=== PATIENT | male | born 1970 | race Caucasian/White ===

== ENCOUNTER 2016-04-24 20:16 | Emergency (ER) | payer BC ==
[2016-04-24 21:09] LABS: Hematocrit 40.1 % (42.0-52.0); Hemoglobin 13.9 gm/dL (13.5-18.0); Mean Cell Volume 88.7 fl (78-100); Mean Corpuscular Hemoglobin 30.8 pg (27-31); Mean Corpuscular Hgb Conc 34.7 g/dl (32-36); Mean Platelet Volume 9.9 fl (6.0-9.5); Neutrophil # 6.6 K/mm3 (1.3-6.0); Neutrophil % 56.5 % (42-75.0); Platelet Count 250 K/mm3 (150-450); Red Blood Count 4.52 M/mm3 (4.7-6.0); Red Cell Distribution Width 13.1 % (11.5-14.0); White Blood Count 11.6 K/mm3 (4.0-10.5)
--- OUTSIDE RECORDS SUMMARY | 2016-04-24 21:16 | XMS REPORT | Continuity of Care Document ---
:1970 Author Organization [facility] [place] [address] Care Team Providers Name Role Phone Rosa Acuña Primary Care Provider [phone] Source Comments This disclosure is being made pursuant to the [employer] program and maynot contain all information available regarding this patient.[facility] Active Allergies and Adverse Reactions Allergen Noted Date Severity Reactions Comments Codeine 06/09/2012 Medium Nausea And Vomiting Current Medications Be aware that medications may not be up to date as of this document. Alwaysverify current medications with the patient. Prescription Sig. Disp. Refills Start Date End Date Status albuterol (PROVENTIL Inhale 2 puffs 1 Inhaler 0 06/09/2012 Active HFA;VENTOLIN HFA) 108 into the lungs (90 BASE) MCG/ACT every 4 (four) inhaler hours as needed for Wheezing or Shortness of Breath. HYDROcodone-acetaminop Take 1 tablet by 25 tablet 0 07/13/2013 Active hen (NORCO) 5-325 MG mouth every 6 per tablet (six) hours as needed for Pain. Active Problems Not on file Social History Tobacco Use Types Packs/Day Years Used Date Current Every Day Smoker Cigarettes 2 Alcohol Use Drinks/Week oz/Week Comments Yes rarely Last Filed Vital Signs Vital Sign Reading Time Taken Blood Pressure 102/63 07/13/2013 11:46 PM CDT Pulse 70 07/13/2013 11:46 PM CDT Temperature 35.7 C (96.3 F) 07/13/2013 7:27 PM CDT Respiratory Rate 18 07/13/2013 11:46 PM CDT Height 1.829 m (6') 07/06/2012 2:03 PM CDT Weight 57.153 kg (126 lb) 07/06/2012 2:03 PM CDT Body Mass Index 17.08 07/06/2012 2:03 PM CDT Oxygen Saturation 98% 07/13/2013 11:46 PM CDT Plan of Care Health Maintenance Due Date Last Done Comments Retired-Pertussis Vaccine Adult 08/03/1987 Retired-Tetanus Vaccine Adult 08/03/1987 Retired-INFLUENZA VACCINE 10/19/2014 Results from Last 3 Months Not on file
[2016-04-24 21:20] LABS: Prothrombin Time (Patient) 11.1 Seconds (9.4-11.4)
[2016-04-24 21:28] LABS: ALT 21 U/L (19-67); AST 13 U/L (0-48); Albumin * 3.6 gm/dl (3.4-5.0); Alkaline Phosphatase * 85 U/L (50-170); Anion Gap 13.8 mmol/L (6.8-13.8); BUN/Creatinine Ratio 22.8 (9.0-21.6); Bilirubin, Total 0.1 mg/dL (0.0-1.1); Blood Urea Nitrogen 23 mg/dL (6-23); Ca. Corrected For Albumin 8.5 mg/dL (8.4-10.2); Calcium * 8.5 mg/dL (7.9-10.9); Carbon Dioxide 26.8 mmol/L (24-32.6); Chloride 108 mmol/L (97-106); Glucose * 124 mg/dL (70-110); INR 1.07 INR (0.90-1.10); Partial Thrombolplastin Time 25.7 Seconds (24-32); Potassium 3.6 mmol/L (3.4-4.6); Sodium 145 mmol/L (132-142); Total Protein 6.8 gm/dL (6.2-8.2)
[2016-04-24 21:33] LABS: Troponin I Less than 0.017 ng/ml (0.00-0.10)
[2016-04-24] MEDS ORDERED: ASPIRIN 81 MG TAB.CHEW ONE (21:39)
[2016-04-24] MEDS: ASPIRIN 81 MG TAB.CHEW PO ONE (21:42)
[2016-04-24] MEDS: NITROGLYCERIN 0.4 MG/TAB BTL SL ONE (21:43)
[2016-04-24] MEDS: MAG HYDROX/ALUMINUM HYD/SIMETH 30 ML UDC PO ONE (21:45)
[2016-04-24] MEDS: SUCRALFATE 1 G/10 ML UDC PO ONE (21:45)
[2016-04-24] MEDS: LIDOCAINE HCL 20 ML UDC PO ONE (21:45)
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
[2016-04-24] MEDS: NORMAL SALINE 1,000 ML IV ONE (21:48)
[2016-04-24 22:10] LABS: Urine Bilirubin Negative (NEGATIVE); Urine Blood Negative /ul (NEGATIVE); Urine Ketone Negative (NEGATIVE); Urine Nitrite Negative (NEGATIVE); Urine Protein Negative (NEGATIVE); Urine Specific Gravity 1.025 SP.GR. (1.005-1.030); Urine Urobilinogen Normal (NORMAL)
[2016-04-24 22:21] LABS: Urine Appearance Clear; Urine Bacteria TRACE; Urine Color Yellow; Urine Mucus Moderate - 2+; Urine RBC None Seen /hpf (0-5); Urine WBC None Seen /hpf (0-5)
[2016-04-24 22:24] LABS: Cocaine Ur Negative (NEGATIVE); Urine Barbiturate Negative (NEGATIVE); Urine Benzodiazepines Negative (NEGATIVE); Urine Opiates Negative (NEGATIVE); Urine PCP Negative (NEGATIVE); Urine THC Negative (NEGATIVE)
[2016-04-24] MEDS ORDERED: KETOROLAC TROMETHAMINE 60 MG/2 ML VIAL IM ONE (22:31)
[2016-04-24] MEDS ORDERED: KETOROLAC TROMETHAMINE 30 MG/ML VIAL ONE (22:32)
[2016-04-24] MEDS: KETOROLAC TROMETHAMINE 30 MG/ML VIAL IV ONE (22:39)
[2016-04-24 23:08] VITALS: BP 103/69
== END 2016-04-24 23:01 | disposition home or self-care (01) ==
LOC: ER 20:16
DX: R07.89 Other chest pain (principal); Z72.0 Tobacco use

== ENCOUNTER 2016-05-25 15:08 | Emergency (ER) | payer BC ==
[2016-05-25 15:33] VITALS: BP 114/71
--- OUTSIDE RECORDS SUMMARY | 2016-05-25 16:15 | XMS REPORT | Continuity of Care Document ---
:1970 Author Organization [facility] [place] [address] Care Team Providers Name Role Phone Rosa Acuña Primary Care Provider [phone] Source Comments This disclosure is being made pursuant to the [employer] program and maynot contain all information available regarding this patient.[facility] Active Allergies and Adverse Reactions Allergen Noted [...]
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
== END 2016-05-25 16:30 | disposition short-term general hospital (02) ==
LOC: ER 15:08
DX: S05.02XA Injury of conjunctiva and corneal abrasion without foreign body, left eye, initial encounter (principal); F17.210 Nicotine dependence, cigarettes, uncomplicated; Y93.H9 Activity, other involving exterior property and land maintenance, building and construction

== ENCOUNTER 2016-12-29 09:54 | Emergency (ER) | payer OTHER, BC ==
[2016-12-29] MEDS ORDERED: TETRACAINE HCL 150 DROP BTL ONE (10:18)
[2016-12-29] MEDS ORDERED: TETRACAINE HCL 150 DROP BTL EACHEYE ONE (10:45)
[2016-12-29] MEDS ORDERED: oxyCODONE HCL/ACETAMINOPHEN 1 TAB TABLET PO ONE (11:12)
[2016-12-29] MEDS ORDERED: CYCLOPENTOLATE HCL 20 DROP BTL EACHEYE ONE (11:13)
[2016-12-29] MEDS ORDERED: GENTAMICIN SULFATE 3.5 APPL TUBE EACHEYE ONE (11:14)
[2016-12-29] MEDS ORDERED: CYCLOPENTOLATE HCL 20 DROP BTL ONE (11:21)
[2016-12-29] MEDS ORDERED: oxyCODONE HCL/ACETAMINOPHEN 1 TAB TABLET ONE (11:21)
[2016-12-29] MEDS ORDERED: GENTAMICIN SULFATE 3.5 APPL TUBE ONE (11:21)
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
[2016-12-29 11:37] VITALS: BP 119/73
== END 2016-12-29 11:30 | disposition home or self-care (01) ==
LOC: ER 09:54
PROC: 08C9XZZ Extirpation of Matter from Left Cornea, External Approach (ICD-10-PCS; principal; 2016-12-29)
PROC: 08C8XZZ Extirpation of Matter from Right Cornea, External Approach (ICD-10-PCS; 2016-12-29)
DX: T15.02XA Foreign body in cornea, left eye, initial encounter (principal); T15.01XA Foreign body in cornea, right eye, initial encounter; W27.8XXA Contact with other nonpowered hand tool, initial encounter; Y93.89 Activity, other specified; Y92.63 Factory as the place of occurrence of the external cause; Y99.0 Civilian activity done for income or pay; J45.909 Unspecified asthma, uncomplicated; F17.200 Nicotine dependence, unspecified, uncomplicated